=== PATIENT | male | born 1955 | race Caucasian/White ===

== ENCOUNTER 2017-01-27 17:22 | Emergency (ER) | payer OTHER ==
[~2017-01-27] VITALS: Ht 170.2 cm; Wt 91.5 kg
[2017-01-27 17:32] VITALS: Ht 170.2 cm; Wt 91.5 kg
[2017-01-27] MEDS ORDERED: GLYB5TAB3 PO (22:31)
[2017-01-27] MEDS ORDERED: LISI20TA11 PO (22:31)
[2017-01-27] MEDS ORDERED: GLIM4TAB PO (22:31)
[2017-01-27] MEDS ORDERED: SIMV20TA PO (22:31)
[2017-01-27] MEDS ORDERED: PIPER-TAZO 3.375 GM IV (PMX) 100 ML IVPB ONE (22:33)
[2017-01-27] MEDS ORDERED: SOD CHLORIDE 0.9% 500 ML IV ONE (22:33)
[2017-01-27 23:44] LABS: BASOPHIL # 0.1 10^3/ul (0.0-0.1); BASOPHILS % 0.9 % (0.0-2.0); EOSINOPHILS # 0.7 10^3/ul (0.0-0.5); EOSINOPHILS % 7.3 % (0.0-7.0); HEMATOCRIT 45.5 % (42.0-52.0); HEMOGLOBIN 15.6 g/dl (14.0-18.0); LYMPHOCYTES # 4.4 10^3/ul (0.8-2.9); LYMPHOCYTES % 48.1 % (15.0-51.0); MEAN CORPUSCULAR HEMOGLOBIN 32.4 pg (29.0-33.0); MEAN CORPUSCULAR HGB CONC 34.3 g/dl (32.0-37.0); MEAN CORPUSCULAR VOLUME 94.6 fl (82.0-101.0); MONOCYTE # 0.8 10^3/ul (0.3-0.9); MONOCYTES % 9.1 % (0.0-11.0); NEUTROPHILS % 34.5 % (39.0-77.0); PLATELET COUNT 286 10^3/UL (140-415); RED BLOOD COUNT 4.81 10^6/ul (4.70-6.10); RED CELL DISTRIBUTION WIDTH 12.1 % (11.5-14.5); WHITE BLOOD COUNT 9.2 10^3/ul (4.8-10.8)
[2017-01-27 23:47] LABS: ADD UMIC NO; UR ASCORBIC ACID NEGATIVE (NEGATIVE); UR BILIRUBIN (Dip) NEGATIVE (NEGATIVE); UR BLOOD (Dip) NEGATIVE (NEGATIVE); UR CLARITY CLEAR (CLEAR); UR COLOR YELLOW (YELLOW); UR GLUCOSE (Dip) NEGATIVE (NEGATIVE); UR KETONES (Dip) NEGATIVE (NEGATIVE); UR LEUKOCYTE ESTERASE (Dip) NEGATIVE Leu/ul (NEGATIVE); UR NITRITE (Dip) NEGATIVE (NEGATIVE); UR SPECIFIC GRAVITY (Dip) 1.012 (1.003-1.030); UR TOTAL PROTEIN (Dip) NEGATIVE (NEGATIVE); UR UROBILINOGEN (Dip) NEGATIVE (NEGATIVE)
[2017-01-28 00:02] LABS: ALBUMIN 4.9 g/dl (3.3-4.9); ALBUMIN/GLOBULIN RATIO 1.25; BILIRUBIN,INDIRECT 0.1 mg/dl (0-1.1); BILIRUBIN,TOTAL 0.1 mg/dl (0.2-1.3); CALCIUM 10.1 mg/dl (8.4-10.2); CREATININE 0.81 mg/dl (0.61-1.24); POTASSIUM 3.9 mmol/L (3.5-5.1); TOTAL PROTEIN 8.8 g/dl (6.1-8.1)
[2017-01-28] MEDS ORDERED: CEPH-443 PO (00:33)
[2017-01-28] MEDS ORDERED: SULF1TAB31 PO (00:33)
--- NOTE | 2017-01-28 00:35 | ERD ---
ER Documentation Chief Complaint Date/Time DATE: 01/28/17 TIME: 00:33 Chief Complaint wound to the right leg x 2 weeks; hx of diabetic HPI This is a 60-year-old male wound to the right leg for 2 weeks. Patient has history of diabetes previous to the wound started bleeding today and wanted to be evaluated. No fevers no chills. No discharge. No other current complaints. ROS All systems reviewed and are negative except as per history of present illness. Medications Home Meds Active Scripts Cephalexin* (Keflex*) 500 Mg Capsule, 500 MG PO QID for 7 Days, CAP Prov:USAMATERESITA Evert 01/28/17 Sulfamethoxazole/Trimethoprim* (Bactrim Ds* Tablet) 1 Each Tablet, 1 TAB PO BID , #14 TAB Prov:BENITOPAMELATERESITA Evert 01/28/17 Reported Medications Glimepiride* (Glimepiride*) 4 Mg Tablet, 4 MG PO WITH BREAKFAST DINNE, TAB 01/27/17 Simvastatin* (Zocor*) 20 Mg Tablet, 20 MG PO QHS, #30 TAB 01/27/17 Glyburide* (Glyburide*) 5 Mg Tablet, 5 MG PO DAILY, #30 TAB 01/27/17 Lisinopril* (Lisinopril*) 20 Mg Tablet, 20 MG PO DAILY, #30 TAB 01/27/17 Allergies Allergies: Coded Allergies: No Known Allergy (Unverified , 01/27/17) PMhx/Soc History of Surgery: No Anesthesia Reaction: No Hx Neurological Disorder: No Hx Respiratory Disorders: No Hx Cardiac Disorders: Yes (HTN,HLD) Hx Psychiatric Problems: No Hx Miscellaneous Medical Probl: Yes (DM) Hx Alcohol Use: No Hx Substance Use: No Hx Tobacco Use: No Smoking Status: Never smoker Physical Exam Vitals Vital Signs Date Time Temp Pulse Resp B/P Pulse Ox O2 Delivery O2 Flow Rate FiO2 01/27/17 17:32 97.9 82 18 130/69 97 Physical Exam Const: [] Head: Atraumatic Eyes: Normal Conjunctiva ENT: Normal External Ears, Nose and Mouth. Neck: Full range of motion..~ No meningismus. Resp: Clear to auscultation bilaterally Cardio: Regular rate and rhythm, no murmurs Abd: Soft, non tender, non distended. Normal bowel sounds Skin: Venous stasis ulcer noted and right lower extremity. No active bleeding. No evidence of fluctuance or crepitus. Back: No midline or flank tenderness Ext: No cyanosis, or edema Neur: Awake and alert Psych: Normal Mood and Affect Result Diagram: 01/27/17230101/27/17 2302 Results 24 hrs Laboratory Tests Test 01/27/17 22:56 01/27/17 23:02 Urine Color YELLOW Urine Clarity CLEAR Urine pH 5.0 Urine Specific [place] 1.012 Urine Ketones NEGATIVEmg/dL Urine Nitrite NEGATIVEmg/dL Urine Bilirubin NEGATIVEmg/dL Urine Urobilinogen NEGATIVEmg/dL Urine Leukocyte Esterase NEGATIVELeu/ul Urine Hemoglobin NEGATIVEmg/dL Urine Glucose NEGATIVEmg/dL Urine Total Protein NEGATIVEmg/dl White Blood Count 9.210^3/ul Red Blood Count 4.8110^6/ul Hemoglobin 15.6g/dl Hematocrit 45.5% Mean Corpuscular Volume 94.6fl Mean Corpuscular Hemoglobin 32.4pg Mean Corpuscular Hemoglobin Concent 34.3g/dl Red Cell Distribution Width 12.1% Platelet Count 64852^3/UL Mean Platelet Volume 10.0fl Neutrophils % 34.5% Lymphocytes % 48.1% Monocytes % 9.1% Eosinophils % 7.3% Basophils % 0.9% Nucleated Red Blood Cells % 0.0/100WBC Neutrophils # (Manual) 3.210^3/ul Lymphocytes # 4.410^3/ul Monocytes # 0.810^3/ul Eosinophils # 0.710^3/ul Basophils # 0.110^3/ul Nucleated Red Blood Cells # 0.010^3/ul Sodium Level 142mmol/L Potassium Level 3.9mmol/L Chloride Level 105mmol/L Carbon Dioxide Level 26mmol/L Anion Gap 15 Blood Urea Nitrogen 18mg/dl Creatinine 0.81mg/dl Glucose Level 113mg/dl Calcium Level 10.1mg/dl Total Bilirubin 0.1mg/dl Direct Bilirubin 0.00mg/dl Indirect Bilirubin 0.1mg/dl Aspartate Amino Transf (AST/SGOT) 91IU/L Alanine Aminotransferase (ALT/SGPT) 77IU/L Alkaline Phosphatase 119IU/L Total Protein 8.8g/dl Albumin 4.9g/dl Globulin 3.90g/dl Albumin/Globulin Ratio 1.25 Lipase 159U/L Current Medications Medications (Trade) Dose Ordered Sig/Allen Route PRN Reason Start Time Stop Time Status Last Admin Dose Admin Sodium Chloride 500 ml @ 500 mls/hr Q1H ONCE IV 01/27/17 22:33 01/27/17 23:32 DC 01/27/17 23:29 Piperacillin Sod/ Tazobactam Sod (Zosyn 3.375gm/ 100 ml (Pmx)) 100 ml @ 200 mls/hr ONCE ONCE IVPB 01/27/17 22:33 01/27/17 23:02 DC 01/27/17 23:30 Procedures/MDM Medical decision-makin-year-old gentleman with a venous stasis ulcer. Given dose of Zosyn here. Discharged on Bactrim and Keflex. He does have follow-up with wound care clinic on . Stable for outpatient management at this point. Told to return for worsening symptoms. Departure Diagnosis: Primary Impression: Venous stasis ulcer Venous stasis ulcer site: calf Varicose vein presence: with varicose veins Laterality: right Non-pressure ulcer stage: limited to breakdown of skin Qualified Code: I83.012 - Venous stasis ulcer of right calf limited to breakdown of skin with varicose veins Condition: Stable Patient Instructions: Venous Leg Ulcer TERESITA FORRESTER Jan 28, 2017 00:35
[2017-01-28 02:23] VITALS: BP 127/68; PULSE 70; RESP 17; TEMP 98
== END 2017-01-28 02:24 | disposition home or self-care (01) ==
LOC: E/R 17:22
DX: I83.012 Varicose veins of right lower extremity with ulcer of calf (principal); E11.9 Type 2 diabetes mellitus without complications; I10 Essential (primary) hypertension; L97.919 Non-pressure chronic ulcer of unspecified part of right lower leg with unspecified severity; Z79.84 Long term (current) use of oral hypoglycemic drugs
CPT/HCPCS: 36415; 80053; 81003; 83690; 85025; 87040; 87070; 96374; 99284; J2543; J7040